=== PATIENT | male | born 1955 | race Caucasian/White ===

== ENCOUNTER 2019-06-24 06:00 | Day surgery (SDC) | payer MEDICARE, SELFPAY ==
[2019-06-22 10:16] VITALS: BMI 36.5
[2019-06-24 06:25] VITALS: BP 148/88; PULSE 52; RESP 20; TEMP 36.6; O2SAT 98
[2019-06-24] MEDS: sodium chloride 0.9% 1,000 ML 30 ML IV (06:28)
--- NOTE | 2019-06-24 06:38 | ANES.PREANE2 ---
Pre-Anesthetic Assessment Pre-Anesthetic Assessment: Height/Weight: Height 1.93 m Weight 136.078 kg Temp Pulse Resp BP Pulse Ox 97.9 F 52 L 20 H 148/88 98 06/24/19 06:25 06/24/19 06:25 06/24/19 06:25 06/24/19 06:25 06/24/19 06:25 Proposed Procedure: Operation Date: 06/24/19 07:00 Proposed Procedures p Colonoscopy(Not Applicable) - Brian Rodriguez MD Last intake: Intake Last Liquid Date 06/23/19 Last Liquid Time 19:00 Last Solid Date 06/22/19 Last Solid Time 18:00 Social: Social History: No alcohol and No tobacco Exam: Pre-Anes Outpt Exam: alert, oriented x 3, clear to auscultation bilaterally and regular rate & rhythm Airway: Submandibular: WNL Cervical ROM: WNL MP: 2 Dentition: Other (teeth ok) History/ROS: No significant history except as noted Pulmonary: Pulmonary: None reported CV/HEM: CV/HEM: HTN Comments: AVR : : None reported Hepatic: Hepatic: None reported GI: GI: GERD (occ) Metabolic: Metabolic: Morbid obesity Musc/skel: Musc/skel: Fibromyalgia, Lower Back Pain and OA/DJD Neuropsych: Neuropsych: Anxiety, Depression and Neuropathy (bilat feet) Anesthetic Plan: ASA status: 3 Anesthesia: Anesthesia Evaluation and MAC Risk of > 500 ml blood loss (7ml/kg in children): No Meds/Allergies Current Medications: Current Medications Generic Name Dose Route Start Last Admin Trade Name Freq PRN Reason Stop Dose Admin Sodium Chloride 1,000 mls @ 30 ml s/hr 06/24/19 06:15 06/24/19 06:28 Sodium Chloride 0.9% IV 06/25/19 06:14 30 mls/hr .Q24H PRANEETH Administration PFSH Anesthesia PFSH: Medical History Colitis Deviated nasal septum Diverticulosis Fibromyalgia History of gastric ulcer Hx of gastroesophageal reflux (GERD) Hx of hiatal hernia Sleep apnea Valvular heart disease Surgical History H/O aortic valve replacement with porcine valve H/O left inguinal hernia repair Hx of arthroscopy of shoulder Hx of colonoscopy Data Anesthesia Cardiac Studies: No Data to Display
--- NOTE | 2019-06-24 07:08 | W.PM.OPSUD ---
Surgery/Procedure H&P Update DATE OF PROCEDURE: June 24, 2019 DATE H&P PERFORMED: 06/14/19 H&P UPDATE INFORMATION: No changes to prior documentation PLANNED PROCEDURE: Operation Date: 06/24/19 07:00 Proposed Procedures p Colonoscopy(Not Applicable) - Brian Rodriguez MD
[2019-06-24 07:36] VITALS: BP 104/62; PULSE 47; RESP 16; TEMP 37.1; O2SAT 97
[2019-06-24 07:48] VITALS: BP 112/65; PULSE 47; RESP 18; O2SAT 97
== END 2019-06-24 08:00 | disposition home or self-care (01) ==
PROVIDERS: PCP Internal Medicine; Visit Provider Surgery
PROC: 0DJD8ZZ Inspection of Lower Intestinal Tract, Via Natural or Artificial Opening Endoscopic (ICD-10-PCS; CPT 45378; principal; 2019-06-24 07:00)
DX: Z12.11 Encounter for screening for malignant neoplasm of colon (principal); K57.30 Diverticulosis of large intestine without perforation or abscess without bleeding; K64.8 Other hemorrhoids; D12.0 Benign neoplasm of cecum; D12.3 Benign neoplasm of transverse colon; I10 Essential (primary) hypertension; K21.9 Gastro-esophageal reflux disease without esophagitis; E66.01 Morbid (severe) obesity due to excess calories; Z68.36 Body mass index [BMI] 36.0-36.9, adult; M79.7 Fibromyalgia; M19.90 Unspecified osteoarthritis, unspecified site; F41.9 Anxiety disorder, unspecified; F32.9 Major depressive disorder, single episode, unspecified
CPT/HCPCS: 12345; 45385; 88305; J2001; J2704; J7030

== ENCOUNTER → 2019-09-01 15:24 | Outpatient (BNVA) | payer MEDICARE, SELFPAY | PROVIDERS: PCP Internal Medicine; Referring Provider Nurse Practitioner; Visit Provider Podiatrist Foot & Ankle Surgery | DX: S92.109A Unspecified fracture of unspecified talus, initial encounter for closed fracture (principal); S92.009A Unspecified fracture of unspecified calcaneus, initial encounter for closed fracture; W19.XXXA Unspecified fall, initial encounter | CPT/HCPCS: 73590; 73610 ==

== ENCOUNTER 2019-09-23 15:24 | Outpatient (CLI) | payer MEDICARE, SELFPAY | END 2019-09-23 15:25 | disposition home or self-care (01) | LOC: SPT 15:24 | PROVIDERS: PCP Internal Medicine; Visit Provider Podiatrist Foot & Ankle Surgery | DX: Z46.89 Encounter for fitting and adjustment of other specified devices (principal); S92.109D Unspecified fracture of unspecified talus, subsequent encounter for fracture with routine healing; S95 Injury of blood vessels at ankle and foot level; X58.XXXD Exposure to other specified factors, subsequent encounter | CPT/HCPCS: 97760; L1902 ==

== ENCOUNTER 2020-01-15 16:00 | Observation (INO) | payer MEDICARE, SELFPAY ==
[2020-01-15] VITALS (15 sets, daily range): BP systolic 135–228; BP diastolic 74–146; PULSE 59–72; RESP 15–27; TEMP 36.4; O2SAT 92–99; BMI 38.9
--- NOTE | 2020-01-15 16:12 | XRR_ITS ---
PROCEDURE INFORMATION: Exam: XR Chest, 1 View Exam date and time: 01/15/2020 4:44 PM Age: 64 years old Clinical indication: Dyspnea; Additional info: Syncope TECHNIQUE: Imaging protocol: XR of the chest Views: 1 view. COMPARISON: CR Chest 2 views* [id number] 09/29/2017 8:38 PM FINDINGS: Lungs: Bilateral upper lobe predominant interstitial opacities are noted. No airspace consolidation is seen. Pleural space: Unremarkable. No pleural effusion. No pneumothorax. Heart/Mediastinum: The heart is normal in size. Postoperative changes of aortic valve repair are again noted. Bones/joints: Degenerative changes are seen in the thoracic spine. XR/XR chest 1V portable [id number] IMPRESSION: Bilateral upper lobe predominant interstitial opacities. Inhalational lung injury, pneumonitis or atypical/viral pulmonary infection are diagnostic considerations.
--- NOTE | 2020-01-15 16:53 | ED_ITS ---
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 Conversation last fall he began to get substernal chest pain does not radiate anywhere. He had some slight shortness of breath but no diaphoresis. He vomited x2. Did have sick nausea with it. He still having some moderate chest pain now. Patient did have a aortic valvuloplasty done about 5 years ago at that time he had a stress test and an angiogram and was told that the angiogram was completely normal except for the valve issue. He did not take anything for it before coming in today. He had not had any ep isodes similar to this prior. MD complaint: chest pain Onset (ago): hour(s) Timing of current episode: constant and still present Prior episodes: No Onset: during rest Pain location: substernal Pain radiation: none Severity: moderate Quality: tightness, aching and heaviness Relieving factors: nothing Exacerbating factors: nothing Associated symptoms: Reports dyspnea; Deny abdominal pain, diaphoresis, fever(s), leg edema, nausea, palpitations, sense of impending doom, syncope or vomiting Treatment prior to arrival: none Review of Systems Const: Denies: fever(s) or diaphoresis ENMT: Denies: throat pain, ear or mastoid pain, nasal discharge or nasal congestion Card: Denies: palpitations or syncope Resp: Reports: dyspnea GI: Denies: abdominal pain, nausea or vomiting : Denies: flank pain, dysuria, urinary frequency or urinary urgency Skin/Breast: Denies: rash or pruritus PFSH ED PFSH: Medical History Colitis Deviated nasal septum Diverticulosis Dyslipidemia Essential hypertension Fibromyalgia History of gastric ulcer Hx of gastroesophageal reflux (GERD) Hx of hiatal hernia Obesity Sleep apnea Valvular heart disease Surgical History H/O aortic valve replacement with porcine valve H/O left inguinal hernia repair Hx of arthroscopy of shoulder Hx of colonoscopy Physical Exam Const: COMMON NORMALS: no acute distress GENERAL APPEARANCE: cooperative and comfortable ORIENTATION/CONSCIOUSNESS: Yes awake, Yes oriented to person, Yes oriented to place and Yes oriented to time HENMT: COMMON NORMALS: normocephalic, atraumatic and hearing grossly normal bilaterally HEAD & SCALP: normocephalic and atraumatic Neck/C-Spine: COMMON NORMALS: no JVD Resp: COMMON NORMALS: normal respiratory effort, No retractions, No use of accessory muscles and clear to auscultation bilaterally AUSCULTATION: clear to auscultation bilaterally Cardio: COMMON NORMALS: no JVD, regular rate, regular rhythm and No murmurs present (Cardio) RATE: regular rate RHYTHM: regular rhythm GI: COMMON NORMALS: Soft to palpation and No hepatosplenomegaly present AUSCULTATION: Yes normoactive bowel sounds PALPATION: Yes Soft to palpation, No Tenderness to palpation present (GI), No Guarding due to palpation present (GI) and Yes No hepatosplenomegaly present Extremity: COMMON NORMALS: normal to inspection, capillary refill normal, no clubbing, cyanosis or edema, no calf tenderness and no pedal edema Neuro: SENSORIUM/ORIENTATION: Yes oriented to person, Yes oriented to place and Yes oriented to time Skin: COMMON NORMALS: no rashes or lesions noted GENERAL SKIN EXAM: no rashes or lesions noted Course Vital Signs: Vital signs: Vital Signs Temperature 98.0 F 01/16/20 04:00 Pulse Rate 64 01/16/20 04:50 Respiratory Rate 18 01/16/20 04:50 Blood Pressure 135/84 01/16/20 04:50 Pulse Oximetry 92 01/16/20 04:50 MDM - Chest Pain MDM Narrative: Medical decision making narrative: Patient having accelerated hypertension waiting on second troponin. Case signed out to Dr. Sarabia. Currently is on a nitro drip for blood pressure he has some subtle EKG changes but not fully diagnostic. Care turned over to Dr. Sarabia at change of shift see his notes for final diagnosis andl disposition Lab Data: Labs: Lab Results 01/15/20 01/15/20 01/15/20 Range/Units 16:40 16:40 16:40 WBC 11.0 H (4.0-10.0) 10^3/ uL RBC 5.70 H (4.1-5.3) 10^6/u L Hgb 16.8 H (11.7-16.6) g/dL Hct 49.7 (42.0-52.0) % MCV 87.2 (80-94) fL MCH 29.5 (28.0-34.0) pg MCHC 33.8 (30.0-36.0) g/dL RDW 12.8 (12.1-15.1) % Plt Count 253 (130-400) 10^3/c mm MPV 10.8 H (7.4-10.4) fL Neut % (Auto) 68.3 % Lymph % (Auto) 20.3 % Linn % (Auto) 7.2 % Eos % (Auto) 3.5 % Baso % (Auto) 0.4 % Neut # (Auto) 7.52 (1.8-7.7) 10^3/u L Lymph # (Auto) 2.2 (0.8-4.8) 10^3/u L Linn # (Auto) 0.8 (0.2-0.9) 10^3/u L Eos # (Auto) 0.4 (0.0-0.8) 10^3/u L Baso # (Auto) 0.0 (0.0-0.1) 10^3/u L Nucleated RBC % (a uto) 0 % Nucleated RBCs # 0.0 /100WBC PT 13.10 (12.1-14.9) SECO NDS INR 0.96 (0.8-1.2) APTT 30.8 (23.9-36.7) SECO NDS Sodium 139 (136-145) mmol/L Potassium 3.9 (3.5-5.1) mmol/L Chloride 103 (98-107) mmol/L Carbon Dioxide 25 (22-29) mmol/L Anion Gap 14.9 (5-19) BUN 22 (8-23) mg/dL Creatinine 1.1 (0.7-1.2) mg/dL GFR Calculation 67.0 L (90-130) mL/min Glucose 94 (65-115) mg/dL Calculated Osmolal ity 291 (285-295) mOsm/k g Calcium 10.3 (8.5-10.5) mg/dL Magnesium 1.9 (1.7-2.3) mg/dL Total Bilirubin 0.4 (0.15-1.2) mg/dL AST 23 (0-40) U/L ALT 16 (0-41) U/L Alkaline Phosphata se 88 (40-130) IU/L Troponin T Baselin e (0-15) ng/L Troponin T 120 Min kashia (0-15) ng/L Delta Troponin T (0-10) ABS# Troponin T Hi Sens 6Hr (0-15) ng/L Troponin T Hi Sens 6Hr Delta (0-12) ng/L NT-Pro-B Natriuret Pep 1031 H (0-125) pg/mL Total Protein 7.7 (6.6-8.7) g/dL Albumin 4.5 (3.5-5.2) g/dL Globulin 3.2 (1.3-4.6) g/dL SARS-CoV-2 Ag (Rap id) (Negative) 01/15/20 01/15/20 01/15/20 Range/Units 16:40 18:37 19:29 WBC (4.0-10.0) 10^3/ uL RBC (4.1-5.3) 10^6/u L Hgb (11.7-16.6) g/dL Hct (42.0-52.0) % MCV (80-94) fL MCH (28.0-34.0) pg MCHC (30.0-36.0) g/dL RDW (12.1-15.1) % Plt Count (130-400) 10^3/c mm MPV (7.4-10.4) fL Neut % (Auto) % Lymph % (Auto) % Linn % (Auto) % Eos % (Auto) % Baso % (Auto) % Neut # (Auto) (1.8-7.7) 10^3/u L Lymph # (Auto) (0.8-4.8) 10^3/u L Linn # (Auto) (0.2-0.9) 10^3/u L Eos # (Auto) (0.0-0.8) 10^3/u L Baso # (Auto) (0.0-0.1) 10^3/u L Nucleated RBC % (a uto) % Nucleated RBCs # /100WBC PT (12.1-14.9) SECO NDS INR (0.8-1.2) APTT (23.9-36.7) SECO NDS Sodium (136-145) mmol/L Potassium (3.5-5.1) mmol/L Chloride (98-107) mmol/L Carbon Dioxide (22-29) mmol/L Anion Gap (5-19) BUN (8-23) mg/dL Creatinine (0.7-1.2) mg/dL GFR Calculation (90-130) mL/min Glucose (65-115) mg/dL Calculated Osmolal ity (285-295) mOsm/k g Calcium (8.5-10.5) mg/dL Magnesium (1.7-2.3) mg/dL Total Bilirubin (0.15-1.2) mg/dL AST (0-40) U/L ALT (0-41) U/L Alkaline Phosphata se (40-130) IU/L Troponin T Baselin e 27 H (0-15) ng/L Troponin T 120 Min kashia 23.31 H (0-15) ng/L Delta Troponin T -3.69 L (0-10) ABS# Troponin T Hi Sens 6Hr 23.43 H (0-15) ng/L Troponin T Hi Sens 6Hr Delta -3.57 L (0-12) ng/L NT-Pro-B Natriuret Pep (0-125) pg/mL Total Protein (6.6-8.7) g/dL Albumin (3.5-5.2) g/dL Globulin (1.3-4.6) g/dL SARS-CoV-2 Ag (Rap id) (Negative) 01/15/20 Range/Units 19:30 WBC (4.0-10.0) 10^3/ uL RBC (4.1-5.3) 10^6/u L Hgb (11.7-16.6) g/dL Hct (42.0-52.0) % MCV (80-94) fL MCH (28.0-34.0) pg MCHC (30.0-36.0) g/dL RDW (12.1-15.1) % Plt Count (130-400) 10^3/c mm MPV (7.4-10.4) fL Neut % (Auto) % Lymph % (Auto) % Linn % (Auto) % Eos % (Auto) % Baso % (Auto) % Neut # (Auto) (1.8-7.7) 10^3/u L Lymph # (Auto) (0.8-4.8) 10^3/u L Linn # (Auto) (0.2-0.9) 10^3/u L Eos # (Auto) (0.0-0.8) 10^3/u L Baso # (Auto) (0.0-0.1) 10^3/u L Nucleated RBC % (a uto) % Nucleated RBCs # /100WBC PT (12.1-14.9) SECO NDS INR (0.8-1.2) APTT (23.9-36.7) SECO NDS Sodium (136-145) mmol/L Potassium (3.5-5.1) mmol/L Chloride (98-107) mmol/L Carbon Dioxide (22-29) mmol/L Anion Gap (5-19) BUN (8-23) mg/dL Creatinine (0.7-1.2) mg/dL GFR Calculation (90-130) mL/min Glucose (65-115) mg/dL Calculated Osmolal ity (285-295) mOsm/k g Calcium (8.5-10.5) mg/dL Magnesium (1.7-2.3) mg/dL Total Bilirubin (0.15-1.2) mg/dL AST (0-40) U/L ALT (0-41) U/L Alkaline Phosphata se (40-130) IU/L Troponin T Baselin e (0-15) ng/L Troponin T 120 Min kashia (0-15) ng/L Delta Troponin T (0-10) ABS# Troponin T Hi Sens 6Hr (0-15) ng/L Troponin T Hi Sens 6Hr Delta (0-12) ng/L NT-Pro-B Natriuret Pep (0-125) pg/mL Total Protein (6.6-8.7) g/dL Albumin (3.5-5.2) g/dL Globulin (1.3-4.6) g/dL SARS-CoV-2 Ag (Rap id) Negative (Negative) Discharge Plan Discharge Patient Disposition: Placed in Observation Admit Provider: Dennis Ag Clinical Impression: Hypertensive urgency Chest pain Qualifiers: Chest pain type: unspecified Qualified Code(s): R07.9 - Chest pain, unspecified Coding Level of Care Code ED Slurry Control Operator Helper for Chg Fwd Exam Comprehensive Documented by User: Dominik Sarabia DO 01/15/20 21:10 HPI - Chest Pain General: Chief Complaint: Chest Pain Stated Complaint: CP Time Seen by Provider: 01/15/20 16:38 PFSH ED PFSH: Medical History Colitis Deviated nasal septum Diverticulosis Dyslipidemia Essential hypertension Fibromyalgia History of gastric ulcer Hx of gastroesophageal reflux (GERD) Hx of hiatal hernia Obesity Sleep apnea Valvular heart disease Surgical History H/O aortic valve replacement with porcine valve H/O left inguinal hernia repair Hx of arthroscopy of shoulder Hx of colonoscopy Course Vital Signs: Vital signs: Vital Signs Temperature 98.0 F 01/16/20 04:00 Pulse Rate 64 01/16/20 04:50 Respiratory Rate 18 01/16/20 04:50 Blood Pressure 135/84 01/16/20 04:50 Pulse Oximetry 92 01/16/20 04:50 MDM - Chest Pain MDM Narrative: Medical decision making narrative: 64-year-old gentleman checked out to me at shift change by Dr. Beltran. This gentleman presented with chest pain and hypertension. His blood pressure was quite high. It remained high despite giving hydralazine, Nitropaste, and amlodipine. He was still having chest pain. Pain improved after 100 mcg of fentanyl, but he was still quite hypertensive. He was placed on a nitroglycerin drip at 10. Current blood pressure 165/84. His chest pain is gone. His EKG showed a sinus rhythm with a left bundle branch block. Repeated 2 hours showed no change. Troponin was 23 initially, and did not change at 2 hours. He remains on a nitroglycerin drip. He will be observed for blood pressure control and symptom control. Chest x-ray showed bilateral upper lobe infiltrates, but CTA of the chest confirmed that it was clear, no PE, no aortic dissection Lab Data: Labs: Lab Results 01/15/20 01/15/20 01/15/20 Range/Units 16:40 16:40 16:40 WBC 11.0 H (4.0-10.0) 10^3/ uL RBC 5.70 H (4.1-5.3) 10^6/u L Hgb 16.8 H (11.7-16.6) g/dL Hct 49.7 (42.0-52.0) % MCV 87.2 (80-94) fL MCH 29.5 (28.0-34.0) pg MCHC 33.8 (30.0-36.0) g/dL RDW 12.8 (12.1-15.1) % Plt Count 253 (130-400) 10^3/c mm MPV 10.8 H (7.4-10.4) fL Neut % (Auto) 68.3 % Lymph % (Auto) 20.3 % Linn % (Auto) 7.2 % Eos % (Auto) 3.5 % Baso % (Auto) 0.4 % Neut # (Auto) 7.52 (1.8-7.7) 10^3/u L Lymph # (Auto) 2.2 (0.8-4.8) 10^3/u L Linn # (Auto) 0.8 (0.2-0.9) 10^3/u L Eos # (Auto) 0.4 (0.0-0.8) 10^3/u L Baso # (Auto) 0.0 (0.0-0.1) 10^3/u L Nucleated RBC % (a uto) 0 % Nucleated RBCs # 0.0 /100WBC PT 13.10 (12.1-14.9) SECO NDS INR 0.96 (0.8-1.2) APTT 30.8 (23.9-36.7) SECO NDS Sodium 139 (136-145) mmol/L Potassium 3.9 (3.5-5.1) mmol/L Chloride 103 (98-107) mmol/L Carbon Dioxide 25 (22-29) mmol/L Anion Gap 14.9 (5-19) BUN 22 (8-23) mg/dL Creatinine 1.1 (0.7-1.2) mg/dL GFR Calculation 67.0 L (90-130) mL/min Glucose 94 (65-115) mg/dL Calculated Osmolal ity 291 (285-295) mOsm/k g Calcium 10.3 (8.5-10.5) mg/dL Magnesium 1.9 (1.7-2.3) mg/dL Total Bilirubin 0.4 (0.15-1.2) mg/dL AST 23 (0-40) U/L ALT 16 (0-41) U/L Alkaline Phosphata se 88 (40-130) IU/L Troponin T Baselin e (0-15) ng/L Troponin T 120 Min kashia (0-15) ng/L Delta Troponin T (0-10) ABS# Troponin T Hi Sens 6Hr (0-15) ng/L Troponin T Hi Sens 6Hr Delta (0-12) ng/L NT-Pro-B Natriuret Pep 1031 H (0-125) pg/mL Total Protein 7.7 (6.6-8.7) g/dL Albumin 4.5 (3.5-5.2) g/dL Globulin 3.2 (1.3-4.6) g/dL SARS-CoV-2 Ag (Rap id) (Negative) 01/15/20 01/15/20 01/15/20 Range/Units 16:40 18:37 19:29 WBC (4.0-10.0) 10^3/ uL RBC (4.1-5.3) 10^6/u L Hgb (11.7-16.6) g/dL Hct (42.0-52.0) % MCV (80-94) fL MCH (28.0-34.0) pg MCHC (30.0-36.0) g/dL RDW (12.1-15.1) % Plt Count (130-400) 10^3/c mm MPV (7.4-10.4) fL Neut % (Auto) % Lymph % (Auto) % Linn % (Auto) % Eos % (Auto) % Baso % (Auto) % Neut # (Auto) (1.8-7.7) 10^3/u L Lymph # (Auto) (0.8-4.8) 10^3/u L Linn # (Auto) (0.2-0.9) 10^3/u L Eos # (Auto) (0.0-0.8) 10^3/u L Baso # (Auto) (0.0-0.1) 10^3/u L Nucleated RBC % (a uto) % Nucleated RBCs # /100WBC PT (12.1-14.9) SECO NDS INR (0.8-1.2) APTT (23.9-36.7) SECO NDS Sodium (136-145) mmol/L Potassium (3.5-5.1) mmol/L Chloride (98-107) mmol/L Carbon Dioxide (22-29) mmol/L Anion Gap (5-19) BUN (8-23) mg/dL Creatinine (0.7-1.2) mg/dL GFR Calculation (90-130) mL/min Glucose (65-115) mg/dL Calculated Osmolal ity (285-295) mOsm/k g Calcium (8.5-10.5) mg/dL Magnesium (1.7-2.3) mg/dL Total Bilirubin (0.15-1.2) mg/dL AST (0-40) U/L ALT (0-41) U/L Alkaline Phosphata se (40-130) IU/L Troponin T Baselin e 27 H (0-15) ng/L Troponin T 120 Min kashia 23.31 H (0-15) ng/L Delta Troponin T -3.69 L (0-10) ABS# Troponin T Hi Sens 6Hr 23.43 H (0-15) ng/L Troponin T Hi Sens 6Hr Delta -3.57 L (0-12) ng/L NT-Pro-B Natriuret Pep (0-125) pg/mL Total Protein (6.6-8.7) g/dL Albumin (3.5-5.2) g/dL Globulin (1.3-4.6) g/dL SARS-CoV-2 Ag (Rap id) (Negative) 01/15/20 Range/Units 19:30 WBC (4.0-10.0) 10^3/ uL RBC (4.1-5.3) 10^6/u L Hgb (11.7-16.6) g/dL Hct (42.0-52.0) % MCV (80-94) fL MCH (28.0-34.0) pg MCHC (30.0-36.0) g/dL RDW (12.1-15.1) % Plt Count (130-400) 10^3/c mm MPV (7.4-10.4) fL Neut % (Auto) % Lymph % (Auto) % Linn % (Auto) % Eos % (Auto) % Baso % (Auto) % Neut # (Auto) (1.8-7.7) 10^3/u L Lymph # (Auto) (0.8-4.8) 10^3/u L Linn # (Auto) (0.2-0.9) 10^3/u L Eos # (Auto) (0.0-0.8) 10^3/u L Baso # (Auto) (0.0-0.1) 10^3/u L Nucleated RBC % (a uto) % Nucleated RBCs # /100WBC PT (12.1-14.9) SECO NDS INR (0.8-1.2) APTT (23.9-36.7) SECO NDS Sodium (136-145) mmol/L Potassium (3.5-5.1) mmol/L Chloride (98-107) mmol/L Carbon Dioxide (22-29) mmol/L Anion Gap (5-19) BUN (8-23) mg/dL Creatinine (0.7-1.2) mg/dL GFR Calculation (90-130) mL/min Glucose (65-115) mg/dL Calculated Osmolal ity (285-295) mOsm/k g Calcium (8.5-10.5) mg/dL Magnesium (1.7-2.3) mg/dL Total Bilirubin (0.15-1.2) mg/dL AST (0-40) U/L ALT (0-41) U/L Alkaline Phosphata se (40-130) IU/L Troponin T Baselin e (0-15) ng/L Troponin T 120 Min kashia (0-15) ng/L Delta Troponin T (0-10) ABS# Troponin T Hi Sens 6Hr (0-15) ng/L Troponin T Hi Sens 6Hr Delta (0-12) ng/L NT-Pro-B Natriuret Pep (0-125) pg/mL Total Protein (6.6-8.7) g/dL Albumin (3.5-5.2) g/dL Globulin (1.3-4.6) g/dL SARS-CoV-2 Ag (Rap id) Negative (Negative) Discharge Plan Discharge Patient Disposition: Placed in Observation Admit Provider: Dennis Ag Clinical Impression: Hypertensive urgency Chest pain Qualifiers: Chest pain type: unspecified Qualified Code(s): R07.9 - Chest pain, unspecified Coding Level of Care Code ED Slurry Control Operator Helper for g Fwd Exam Comprehensive
[2020-01-15 16:56] LABS: Basophils % 0.4 %; Eosinophils # 0.4 10^3/uL (0.0-0.8); Eosinophils % 3.5 %; Hematocrit 49.7 % (42.0-52.0); Hemoglobin 16.8 g/dL (11.7-16.6); Lymphocytes # 2.2 10^3/uL (0.8-4.8); Lymphocytes % 20.3 %; Mean Corpuscular HGB Conc 33.8 g/dL (30.0-36.0); Mean Corpuscular Hemoglobin 29.5 pg (28.0-34.0); Mean Corpuscular Volume 87.2 fL (80-94); Mean Platelet Volume 10.8 fL (7.4-10.4); Monocytes # 0.8 10^3/uL (0.2-0.9); Monocytes % 7.2 %; Neutrophils # 7.52 10^3/uL (1.8-7.7); Neutrophils % 68.3 %; Nucleated Red Blood Cells % 0 %; Platelet Count 253 10^3/cmm (130-400); Red Cell Distribution Width 12.8 % (12.1-15.1)
[2020-01-15 17:09] LABS: INR 0.96 (0.8-1.2)
[2020-01-15 17:10] LABS: Partial Thromboplastin Time 30.8 SECONDS (23.9-36.7)
[2020-01-15 17:17] LABS: Troponin(5th) Baseline 27 ng/L (0-15)
[2020-01-15 17:36] LABS: Alanine Aminotransferase 16 U/L (0-41); Albumin Level 4.5 g/dL (3.5-5.2); Alkaline Phosphatase 88 IU/L (40-130); Anion Gap 14.9 (5-19); Aspartate Amino Transferase 23 U/L (0-40); Blood Urea Nitrogen 22 mg/dL (8-23); Calcium 10.3 mg/dL (8.5-10.5); Carbon Dioxide 25 mmol/L (22-29); Chloride 103 mmol/L (98-107); Globulin 3.2 g/dL (1.3-4.6); Glucose 94 mg/dL (65-115); Magnesium 1.9 mg/dL (1.7-2.3); NT Pro B Type Natriuretic Pept 1031 pg/mL (0-125); Osmolality Calculated 291 mOsm/kg (285-295); Potassium 3.9 mmol/L (3.5-5.1); Sodium 139 mmol/L (136-145); Total Bilirubin 0.4 mg/dL (0.15-1.2); Total Protein 7.7 g/dL (6.6-8.7)
[2020-01-15] MEDS: hyDRALAzine 20 mg/mL INJ 1 mL 10 MG IVP (17:55)
[2020-01-15] MEDS: amlodipine 10 mg Tablet PO (17:56)
[2020-01-15] MEDS: nitroglycerin 1 gm/inch oint Pkt 1 INCH TOPICAL (17:57)
--- NOTE | 2020-01-15 18:13 | ECG_ITS ---
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1955 Requested By: Lillian Hagan Order Number: [id number] Taj MD: JOHNATHAN GE Measurements Intervals [place] Rate: 58 P: 22 VT: 207 QRS: -24 QRSD: 141 T: 15 QT: 441 QTc: 434 Interpretive Statements SINUS BRADYCARDIA POSSIBLE LEFT ATRIAL ENLARGEMENT [-0.1mV P WAVE IN V1/V2] LEFT BUNDLE BRANCH BLOCK [120+ ms QRS DURATION, 80+ ms Q/S IN V1/V2, 85+ ms R IN I/aVL/V5/V6] No previous ECG available for comparison Electronically Signed On 01-16-2020 15:48:59 INTERMEDIATE FRAME TENDER by JOHNATHAN GE [id number]
[2020-01-15] MEDS: ondansetron 2 mg/ML SDV 2 mL 4 MG IVP ×2 (18:17→21:42)
[2020-01-15] MEDS: fentaNYL 50 mcg/mL INJ 2mL 100 MCG IVP (18:18)
--- NOTE | 2020-01-15 18:29 | CTR_ITS ---
PROCEDURE INFORMATION: Exam: CT Angiography Chest With Contrast Exam date and time: 01/15/2020 6:47 PM Age: 64 years old Clinical indication: Chest pain; Other: Sub sternal; Prior surgery; Surgery date: 6+ months; Surgery type: Valve; Patient HX: C/O substernal cp; Additional info: Abnormal cxr TECHNIQUE: Imaging protocol: Computed tomographic angiography of the chest with intravenous contrast. 3D rendering (Not supervised by radiologist): MIP and/or 3D reconstructed images were created by the technologist. Radiation optimization: All CT scans at this facility use at least one of these dose optimization techniques: automated exposure control; mA and/or kV adjustment per patient size (includes targeted exams where dose is matched to clinical indication); or iterative reconstruction. Contrast material: OMNI 350; Contrast volume: 85 ml; Contrast route: INTRAVENOUS (IV); COMPARISON: CR (CHEST, ) 01/15/2020 4:54 PM RADIATION DOSE METRICS: Total DLP (mGy-cm): 530.84 FINDINGS: Pulmonary arteries: No pulmonary embolus. Aorta: Unremarkable. No aortic aneurysm. No aortic dissection. Lungs: The lungs are clear. No interstitial or airspace process is visualized. Pleural space: Unremarkable. No pneumothorax. No pleural effusion. Heart: The heart is normal in size. Aortic valve replacement is noted. Left coronary artery calcifications are appreciated. Mediastinal space: A small hiatal hernia is noted. Lymph nodes: Unremarkable. No enlarged lymph nodes. Gallbladder and bile ducts: Several gallstones are present in the gallbladder. No biliary ductal dilatation is visualized. Stomach and bowel: Diverticulosis coli is seen, without evidence of diverticulitis. Bones/joints: Unremarkable. No acute fracture. Soft tissues: Unremarkable. CT/CT angio chest PE protcl [id number] IMPRESSION: 1. No pulmonary embolus or acute pulmonary pathology. 2. Small hiatal hernia. 3. Coronary artery disease. 4. Diverticulosis coli. Radiation Dose CTDIVOL = (mGy): DLP = 530.84 (mGy-cm)
--- NOTE | 2020-01-15 18:39 | PC.NURSE ---
2hr troponin drawn and 2hr EKG done.
[2020-01-15] MEDS: iohexol 350 mg/mL 100 mL Btl IV (19:15)
[2020-01-15 19:20] LABS: Troponin 5 6HR 23.43 ng/L (0-15)
[2020-01-15] MEDS: nitroglycerin drip 50 MG/250 ML PREMIX IV (19:20)
[2020-01-15 19:48] LABS: Troponin 5 6HR Delta -3.57 ng/L (0-12)
[2020-01-15 20:09] LABS: Troponin 5 2HR 23.31 ng/L (0-15)
[2020-01-15 20:12] LABS: Troponin 5 2HR Delta -3.69 ABS# (0-10)
[2020-01-15 20:21] LABS: SARS Covid-2 Antigen Negative (Negative)
[2020-01-15] MEDS: morphine 4 mg/mL SDV 1 mL IVP (21:42)
--- NOTE | 2020-01-15 23:36 | P.HP_ITS ---
Providers/Chief Complaint Admitting Physician: Dennis Ag MD Primary Care Provider: Jordan Medina DO Chief Complaint: CP History of Present Illness Prakash Musa is a 64 year old male with past medical history of hypertension, status post bioprosthetic aortic valve replacement 5 years ago (coronary angiogram done at that time was did not show any obstructive coronary artery disease, as well as a normal stress test) came in with chief complaint of acute onset of substernal chest pain and shortness of breath around noon, chest pain was pressure-like to sharp, with no radiation, was accompanied with nausea , vomiting and diaphoresis. 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 Upon arrival in the ER his blood pressure was extremely high he has recorded b lood pressure was 215/146.He was worked up for hypertensive urgency/emergency. When I was examining the patient his chest pain has subsided he was not complaining of any shortness, no chest pain on inspiration, no focal weakness, no nausea, was having some headache likely due to the nitro drip, no dizziness, no blurred vision, no abdominal pain, no urinary complaint, he denied any fever, cough, runny nose, abdominal pain , back pain sick contact. Imaging studies: CT angio chest: No pulmonary embolus or acute pulmonary pathology.No pneumothorax. No pleural effusion. Heart: The heart is normal in size. Aortic valve replacement is noted. Left coronary artery calcifications are appreciated. Xray chest : Bilateral upper lobe predominant interstitial opacities are noted. No airspace consolidation is seen. EKG :Sinus Bradycardia . LEFT BUNDLE BRANCH BLOCK. Pertinent lab : Troponin: Baseline: 27, 2-hour troponin: 23, delta 2h : -3.69, 6-hour troponin: 23, delta 6-hour: -3.57 proBNP: 1031 WBC: 11,000, H&H: 16.8/49 Rapid Covid: Negative ECA medications: Amlodipine 10 mg oral one-time dose, hydralazine IV 10 mg one- time dose, nitroglycerin paste 1 inch , fentanyl 100 mcg i.v , morphine sulfate 4 mg IV x1. Patient was placed on nitro drip. Review of Systems Const: Denies: fever(s), chills, body aches or change in appetite Card: Denies: swelling of feet/ankles, orthopnea or leg pain with exertion Resp: Denies: productive cough, wheezing or pain on inspiration GI: Denies: abdominal pain, diarrhea or constipation : Denies: flank pain or difficulty urinating Musc: Denies: back pain, extremity pain or extremity swelling Neuro: Denies: difficulty walking or confusion Medications/Allergies Home Medications Medication Instructions Recorded Confirmed Last Taken Type Aspir-81 81 mg PO DAILY@209906/22/19 01/15/20 01/14/20 History losartan 100 mg PO DAILY@209906/22/19 01/15/20 01/14/20 History metoprolol tartrate 50 mg PO BID@729,209906/22/19 01/15/20 01/15/20 History oxycodone 10 mg PO DIRECTED PRN 06/22/19 01/15/20 Unknown History magnesium oxide 400 mg PO DAILY@72908/25/19 01/15/20 01/15/20 History CAM WALKER #1 each 09/01/19 01/15/20 Unknown Rx ASO #1 each 09/23/19 01/15/20 Unknown Rx Total Cleanse Uric Acid 1 tab PO DAILY@72901/15/20 01/15/20 01/15/20 History vit C-s.yymoor-ffkewp-bxrwp sd 1 cap PO DAILY@72901/15/20 01/15/20 01/15/20 History [Tart Sandhu] Allergies Allergy/AdvReac Type Severity Reaction Status Date / Time Sulfa (Sulfonamide Allergy Unknown Verified 10/14/19 15:13 Antibiotics) PFSH Acute PFSH: Medical History (Updated 01/15/20 @ 21:02 by Dominik Sarabia DO) Colitis Deviated nasal septum Diverticulosis Dyslipidemia Essential hypertension Fibromyalgia History of gastric ulcer Hx of gastroesophageal reflux (GERD) Hx of hiatal hernia Obesity Sleep apnea Valvular heart disease Surgical History H/O aortic valve replacement with porcine valve H/O left inguinal hernia repair Hx of arthroscopy of shoulder Hx of colonoscopy Vitals/I&O/Wt Last Vital Signs Temp 97.6 F 01/15/20 22:00 Pulse 70 01/15/20 22:00 Resp 22 H 01/15/20 22:00 BP 172/101 01/15/20 22:00 Pulse Ox 94 01/15/20 22:00 Weight last 48 hrs Weight 145.15 kg Physical Exam Const: COMMON NORMALS: patient oriented x3 HENMT: COMMON NORMALS: normocephalic and atraumatic HEAD & SCALP: normocephalic and atraumatic Eye: COMMON NORMALS: no scleral icterus GENERAL EYE: appearance normal, both eyes and all related structures Chest: COMMONS NORMALS: normal inspection of the chest CHEST: Yes Symmetrical chest wall rise Resp: COMMON NORMALS: normal respiratory effort, No retractions, No use of accessory muscles and clear to auscultation bilaterally EFFORT & INSPECTION: Yes symmetric chest movement AUSCULTATION: clear to auscultation bilaterally Cardio: COMMON NORMALS: regular rate, regular rhythm, S1 normal heart sound present, S2 normal heart sound present, No gallops present (Cardio), No murmurs present (Cardio), No rub (Cardio) and Peripheral pulses 2+ throughout RATE: regular rate RHYTHM: regular rhythm HEART SOUNDS: S1 normal heart sound present and S2 normal heart sound present PERIPHERAL PULSES: Peripheral pulses 2+ throughout OTHER: Ejection systolic murmur present in right second intercostal space. GI: COMMON NORMALS: Normal to inspection, nondistended, normoactive bowel sounds present, Soft to palpation, non-tender, No hepatosplenomegaly present and no masses AUSCULTATION: Yes normoactive bowel sounds PALPATION: Yes Soft to palpation and Yes No hepatosplenomegaly present RECTAL EXAM: Yes deferred Extremity: COMMON NORMALS: no clubbing, cyanosis or edema and no pedal edema Neuro: COMMON NORMALS: patient oriented x3 Data : 01/15/20 16:40 01/15/20 16:40 A&P Assessment and plan (1) Hypertensive urgency: Patient came in with uncontrolled hypertension with extremely elevated blood pressure.No signs of endorgan damage. Continue nitro drip. Started on home meds losartan 100 mg p.o. daily as well as metoprolol tartrate 50 mg p.o. daily. Hydralazine 25 mg p.o. every 8 hours daily Status: Acute (2) Chest pain: Likely stress related with some component of extremely elevated blood pressure. Troponins are flat, no acute EKG change. We will order 2D echo. Possible stress test as an outpatient, given history of hypertension, dyslipidemia, obesity. Though he denies any smoking, as well as drug use. Status: Acute Qualifiers: Chest pain type: unspecified Qualified Code(s): R07.9 - Chest pain, unspecified (3) Essential hypertension: Continue home medications. Status: Acute (4) Dyslipidemia: Follow-up with lipid panel. Status: Acute (5) Sleep apnea: Status: Acute (6) H/O aortic valve replacement with porcine valve: Repeat 2D echo Status: Acute (7) Obesity: Will encourage diet and exercise Status: Acute (8) Valvular heart disease: Status: Acute Additional A&P Information DVT prophylaxis: Lovenox 40 subcu daily CODE STATUS: Full code Disposition: Home Attestations Medical Necessity Statement*: Patient is to be in hospital for management of hypertensive urgency. Coding Level of Care Code Acute Chemical Plant Operator for Venkata Adan Diagnoses Hypertensive urgency I16.0 Chest pain R07.9 Chest pain type: unspecified Essential hypertension I10 Dyslipidemia E78.5 Sleep apnea G47.30 H/O aortic valve replacement with porcine valve Z95.3 Obesity E66.9 Valvular heart disease I38
[2020-01-16] VITALS (58 sets, daily range): BP systolic 124–153; BP diastolic 68–99; PULSE 56–90; RESP 11–22; TEMP 36.7–37.3; O2SAT 92–97
[2020-01-16] MEDS: enoxaparin 40 mg/0.4 mL Syringe SUBCUT (00:08)
[2020-01-16] MEDS: nitroglycerin drip 50 MG/250 ML PREMIX IV (00:15)
--- NOTE | 2020-01-16 00:18 | PC.NURSE ---
Dr Ag called floor to request hold of first dose of hydralazine. Will begin with 0900 dose 01/16/20
--- NOTE | 2020-01-16 00:55 | PC.NURSE ---
Patient current BP 124/68. Informed Dr Ag and received instructed to stop nitro drip for now.
[2020-01-16 04:50] LABS: Basophils % 0.4 %; Eosinophils # 0.1 10^3/uL (0.0-0.8); Eosinophils % 1.3 %; Hematocrit 45.2 % (42.0-52.0); Hemoglobin 15.3 g/dL (11.7-16.6); Lymphocytes % 19.6 %; Mean Corpuscular HGB Conc 33.8 g/dL (30.0-36.0); Mean Corpuscular Hemoglobin 29.7 pg (28.0-34.0); Mean Corpuscular Volume 87.8 fL (80-94); Mean Platelet Volume 10.8 fL (7.4-10.4); Monocytes # 0.8 10^3/uL (0.2-0.9); Monocytes % 8.1 %; Neutrophils # 7.15 10^3/uL (1.8-7.7); Neutrophils % 70.3 %; Nucleated Red Blood Cells % 0 %; Platelet Count 204 10^3/cmm (130-400); Red Blood Count 5.15 10^6/uL (4.1-5.3); Red Cell Distribution Width 12.8 % (12.1-15.1); White Blood Count 10.2 10^3/uL (4.0-10.0)
[2020-01-16 05:17] LABS: Alanine Aminotransferase 29 U/L (0-41); Albumin Level 3.9 g/dL (3.5-5.2); Alkaline Phosphatase 77 IU/L (40-130); Anion Gap 12.8 (5-19); Aspartate Amino Transferase 40 U/L (0-40); Blood Urea Nitrogen 18 mg/dL (8-23); Calcium 9.4 mg/dL (8.5-10.5); Carbon Dioxide 27 mmol/L (22-29); Chloride 102 mmol/L (98-107); Globulin 2.9 g/dL (1.3-4.6); Glucose 95 mg/dL (65-115); Osmolality Calculated 288 mOsm/kg (285-295); Potassium 3.8 mmol/L (3.5-5.1); Sodium 138 mmol/L (136-145); Total Bilirubin 0.7 mg/dL (0.15-1.2); Total Protein 6.8 g/dL (6.6-8.7)
[2020-01-16 05:28] LABS: Chol HDL Ratio 3.93 mg/dL (1.0-5.00); Cholesterol 181 mg/dL (0-200); HDL Cholesterol 46 mg/dL (60-100); LDL Cholesterol Calculated 111 mg/dL (50-129); LDL HDL Ratio 2.41 RATIO (0.00-3.22); NT Pro B Type Natriuretic Pept 1465 pg/mL (0-125); Triglycerides 121 mg/dL (0-150)
[2020-01-16 05:30] LABS: Magnesium 1.8 mg/dL (1.7-2.3); Thyroid Stimulating Hormone 2.14 uIU/mL (0.27-4.20)
[2020-01-16 05:38] LABS: Partial Thromboplastin Time 34.1 SECONDS (23.9-36.7)
[2020-01-16 08:03] LABS: Estmated Average Glucose 100; Hemoglobin A1C 5.1 % (4.0-6.0)
[2020-01-16] MEDS: metoprolol tartrate 50 mg Tablet PO (08:04)
[2020-01-16] MEDS: hyDRALAzine 25 mg Tablet PO ×2 (08:04→15:49)
[2020-01-16 09:27] LABS: Troponin T (5th) Once 26 ng/L (0-15)
--- NOTE | 2020-01-16 11:32 | PC.CHAP ---
Pastoral Care Encounter/Spiritual Assessment Type of Contact [] Declined tire buster visit [] Patient/Family/Request visit [] Outpatient visit [] Follow-up visit [] Physician referral [] Code/Alert [X] Routine visit [] Staff referral [] Actively dying [] Patient sleeping [] Family support [] [] Out of room [] Palliative care [] [] Receiving care in room [] Pre-surgical visit [] Trauma [] Long length of stay [] ICU visit [] Other: Relational/Emotional Strength [X] Patient feels connected with others/family/visitors/staff [] Distress [] Loneliness/isolation [] Abandonment Spirituality of Patient [] Person of [place] [] Attends Mormon of their [place] [] Believes in Prayer [] Reads Bible or Christian materials [] There are Spiritual issues to be addressed Can Maker Interventions [] Prayer [X] Active listening [X] Non-anxious presence [] Spiritual/emotional support [] Crisis/trauma care [] Spiritual counseling [] Bereavement support [] Provided bereavement packet [] Provided Bible/devotional materials [] Provided toy/stuffed animal, coloring book to patient or family member [] Provided Communion [] Anointing/[place] [] Salvation [] Completed spiritual assessment [] Other: Impact on Illness or Injury [] Angry [] Fearful [] Anxious [] Often cries [] Exhaustion [] Unable to work [] Unable to attend protestant [] Unable to walk/stand [] Unable to read [] Unable to drive [] Unable to eat/drink [] Unable to sleep [] Unable to be with family [] Patient intubated [] Other: Summary: Pt preparing for discharge. He appreciated the visit but did not want/need any tire buster interventions. Time spent with patient: 2 -3 minutes
--- NOTE | 2020-01-16 11:33 | ECG_ITS ---
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: : 1955 Requested By: Sekou Amaya Order Number: [id number] Taj MD: JOHNATHAN GE Measurements Intervals [place] Rate: 59 P: 19 ND: 211 QRS: -23 QRSD: 139 T: -11 QT: 468 QTc: 466 Interpretive Statements SINUS BRADYCARDIA WITH FIRST DEGREE AV BLOCK LEFT BUNDLE BRANCH BLOCK [120+ ms QRS DURATION, 80+ ms Q/S IN V1/V2, 85+ ms R IN I/aVL/V5/V6] Compared to ECG 01/15/2020 18:39:51 First degree AV block now present Electronically Signed On 01-16-2020 15:47:48 PROFESSIONAL PROGRAMMER ANALYST by JOHNATHAN GE [id number]
[2020-01-16] MEDS: ondansetron 2 mg/ML SDV 2 mL 4 MG IVP (12:16)
--- NOTE | 2020-01-16 18:18 | PC.NURSE ---
patient discharged home self care at this time patient provided with discharge instructions as well as follow up appointment and educated on new medications patient verbalized understanding of all instructions given patient assisted to Private vehicle by staff via wheel chair. patient alert oriented and in stable conditions
--- NOTE | 2020-01-16 22:49 | USCV_ITS ---
Prakash Musa Age: 64 Gender: M : 1955 Exam Date: 01/16/2020 08:38 Ordering Phys: Dennis Ag MD Technologist: Ludmila Saucedo [place] [facility] [place]: Chest pain BP: 144 / 80 HR: 62 Rhythm: Sinus Technical Quality: Technically difficult study MEASUREMENTS (Male / Female) Normal Values 2D ECHO LV Diastolic Diameter PLAX 3.7 cm 4.2 - 5.9 / 3.9 - 5.3 cm LV Systolic Diameter PLAX 2.7 cm LV Chamber Size 4.6 cm IVS Diastolic Thickness 2.8 cm 0.6 - 1.0 / 0.6 - 0.9 cm IVS Systolic Thickness 2.5 cm LVPW Diastolic Thickness 1.7 cm 0.6 - 1.0 / 0.6 - 0.9 cm LVPW Systolic Thickness 2.4 cm RV Chamber Size 4.5 cm LVOT Diameter 2.1 cm LV Ejection Fraction 2D Teich 54.2 % LA Diameter 4.8 cm LA Width 3.2 cm LA Height 7.2 cm RA Width 4.0 cm RA Height 5.5 cm Aorta at Sinotubular Diameter 3.4 cm M-MODE LV Diastolic Diameter MM 7.7 cm 4.2 - 5.9 / 3.9 - 5.3 cm LV Systolic Diameter MM 4.7 cm LV Ejection Fraction MM Teich 67.3 % IVS Diastolic Thickness MM 1.3 cm 0.6 - 1.0 / 0.6 - 0.9 cm IVS Systolic Thickness MM 2.1 cm LVPW Diastolic Thickness MM 2.1 cm 0.6 - 1.0 / 0.6 - 0.9 cm LVPW Systolic Thickness MM 2.7 cm Aortic Annulus Diameter 4.1 cm LA Ao Ratio MM 1.4 MV E Point Septal Separation 0.3 cm DOPPLER AV Peak Velocity 319.6 cm/s LVOT Peak Velocity 108.0 cm/s AV Area Cont Eq vti 1.2 cm squared AV Area Cont Eq pk 1.1 cm squared MV Area PHT 3.0 cm squared Mitral E to A Ratio 1.0 MV E' Velocity 50.0 cm/s Mitral E to MV E' Ratio 12.5 Mitral E to LV E' Lateral Ratio 10.2 Mitral E to LV E' Septal Ratio 16.0 TV Peak E Velocity 73.0 cm/s PV Peak Velocity 80.0 cm/s RV Acceleration Time 0.1 s RV Ejection Time 0.3 s RV AcT/ET 0.4 FINDINGS Left Ventricle Normal left ventricular cavity size. Normal left ventricular systolic function. No regional wall motion abnormalities. Left ventricular ejection fraction is estimated at 60 %. Grade I/IV diastolic dysfunction (abnormal relaxation filling pattern), normal to mildly elevated filling pressures. Right Ventricle The right ventricle is normal in size and function. RVSP could not be calculated due to incomplete tricuspid regurgitation velocity profile. Right Atrium The right atrium is normal in size. Left Atrium The left atrium is normal in size. Mitral Valve Structurally normal mitral valve without significant stenosis or prolapse. There is no mitral regurgitation. Aortic Valve Moderate aortic valve calcification. No aortic valve stenosis. Trace aortic valve regurgitation. Tricuspid Valve Structurally normal tricuspid valve without significant stenosis or regurgitation. Pulmonic Valve Structurally normal pulmonic valve without significant stenosis. There is no pulmonic regurgitation. Pericardium Normal pericardium without effusion. Aorta Normal ascending aorta dimension. CONCLUSIONS 1-Normal left ventricular cavity size. Normal left ventricular systolic function. No regional wall motion abnormalities. Left ventricular ejection fraction is estimated at 60 %. Grade I/IV diastolic dysfunction (abnormal relaxation filling pattern), normal to mildly elevated filling pressures. 2-Moderate aortic valve calcification. No aortic valve stenosis. Trace aortic valve regurgitation. 3-There is no pericardial effusion. 4-There is no pericardial effusion. 5-There are no prior echocardiogram studies to compare. Jeanne Arnold MD (Electronically Signed) Final Date: 16 January 2020 14:43 S
--- NOTE | 2020-01-18 12:27 | P.DS_ITS ---
Discharge Providers Date of Admission: 01/15/20 21:07 Date of Discharge: January 18, 2020 Attending Provider at Admission: Dennis Ag MD Attending Provider at Discharge: Sekou Amaya MD Primary Care Provider: Jordan Medina DO Diagnoses at Discharge Discharge Diagnosis (1) Hypertensive urgency: Status: Resolved (2) Chest pain: Status: Resolved Qualifiers: Chest pain type: unspecified Qualified Code(s): R07.9 - Chest pain, unspecified (3) Essential hypertension: (4) Dyslipidemia: (5) Sleep apnea: (6) H/O aortic valve replacement with porcine valve: (7) Obesity: (8) Valvular heart disease: Reason for Visit Reason for Visit: CP Hospital Course Hospital Course This is a 64-year-old male who was admitted to the hospital for hypertensive urgency. Prakash Musa is a 64 year old male with past medical history of hypertension, status post bioprosthetic aortic valve replacement 5 years ago (coronary angiogram done at that time was did not show any obstructive coronary artery disease, as well as a normal stress test) came in with chief complaint of acute onset of substernal chest pain and shortness of breath around noon, chest pain was pressure-like to sharp, with no radiation, was accompanied with nausea , vomiting and diaphoresis. 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 Upon arrival in the ER his blood pressure was extremely high he has recorded blood pressure was 215/146.He was worked up for hypertensive urgency/emergency. When I was examining the patient his chest pain has subsided he was not complaining of any shortness, no chest pain on inspiration, no focal weakness, no nausea, was having some headache likely due to the nitro drip, no dizziness, no blurred vision, no abdominal pain, no urinary complaint, he denied any fever, cough, runny nose, abdominal pain , back pain sick contact. Imaging studies: CT angio chest: No pulmonary embolus or acute pulmonary pathology.No pneumothorax. No pleural effusion. Heart: The heart is normal in size. Aortic valve replacement is noted. Left coronary artery calcifications are appreciated. Xray chest : Bilateral upper lobe predominant interstitial opacities are noted. No airspace consolidation is seen. EKG :Sinus Bradycardia . LEFT BUNDLE BRANCH BLOCK. Hospital course. His blood pressure improved with IV treatment. P.o. hydralazine was added. Echocardiogram was completed. He did not have any wall motion abnormalities. He was noted to have mild elevation in troponins. EKG was reviewed. did not Show any acute changes. He was recommended to complete an outpatient stress test. 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 Statin was added. We are kept him on 81 aspirin. If he becomes symptomatic he will return to the ER or call 911 Physical Exam Const: COMMON NORMALS: no acute distress and average body habitus Neck/C-Spine: COMMON NORMALS: no JVD Chest: COMMONS NORMALS: normal inspection of the chest Resp: COMMON NORMALS: normal respiratory effort and No retractions Cardio: COMMON NORMALS: no JVD and regular rate RATE: regular rate GI: COMMON NORMALS: Soft to palpation and non-tender PALPATION: Yes Soft to palpation Extremity: COMMON NORMALS: normal to inspection and full ROM Discharge Data Data Completed and Pending: Completed Studies During Hospitalization Category Date Time Status CT angio chest PE protcl [id number] Stat Cat Scan 01/15/20 18:29 Completed XR chest 1V lee ble [id number] Stat Exams 01/15/20 16:12 Completed CV echo complete* [id number] Routine Ultrasound 01/16/20 22:49 Completed Vitals: Last Vital Signs Temp 98.3 F 01/16/20 16:00 Pulse 59 L 01/16/20 16:59 Resp 18 01/16/20 16:59 BP 135/76 01/16/20 16:59 Pulse Ox 94 01/16/20 16:59 Discharge Plan Discharge Patient Disposition: Home Condition: Stable Prescriptions: New hydralazine 25 mg Tablet 25 mg PO TID Qty: 75 RF: 0 pravastatin 40 mg tablet 40 mg PO DAILY Qty: 30 RF: 0 Continued magnesium oxide 400 mg magnesium capsule 400 mg PO DAILY@0730 RF: 0 (DME) CAM WALKER See Rx Instructions .ROUTE .MEDSUPPLY Qty: 1 RF: 0 (DME) ASO See Rx Instructions .ROUTE .MEDSUPPLY Qty: 1 RF: 0 Tart Sandhu 82-201-76-75-20 mg Capsule 1 cap PO DAILY@0730 RF: 0 Total Cleanse Uric Acid 1 tab PO DAILY@0730 RF: 0 Aspir-81 81 mg PO DAILY@2100 RF: 0 metoprolol tartrate 50 mg tablet 50 mg PO BID@0730,2100 RF: 0 losartan 100 mg tablet 100 mg PO DAILY@2099 RF: 0 oxycodone 10 mg tablet 10 mg PO DIRECTED PRN (Reason: Pain) RF: 0 Discharge Orders: Discharge Order (Routine); Ordered 01/16/20 Ordered By: Sekou Amaya Other Ambulatory Orders: Sestamibi Stress Test Request (Routine) Timeframe: 1 Week Facility: [facility] - Location: Cardiac Diagnostic Laboratory Ordered By: Sekou Amaya Referrals: Jordan Medina, [Primary Care Provider] - 7-10 days ([facility] will be calling to schedule a hospital followup with Dr. Medina to be seen in 7 to 10 days. If you don't hear from them by Friday, please give them a call. Thank you) Discharge Diet: Cardiac Discharge Activity: Resume usual activity Patient Instructions: How to Take Your Blood Pressure, Pravastatin (By mouth), Hydralazine (By mouth), Chest Pain (DC), Heart Healthy Diet (DC), Hypertensive Crisis (DC), Chest Pain Stoplight Discharge Attestations Time Spent in Discharge Care*: less than 30 min Quality Metrics Clinical Quality Measures During this hospital stay, did patient experience: None Coding Level of Care Code Acute Video Manager for Venkata Fwd Diagnoses Hypertensive urgency I16.0 Chest pain R07.9 Chest pain type: unspecified Essential hypertension I10 Dyslipidemia E78.5 Sleep apnea G47.30 H/O aortic valve replacement with porcine valve Z95.3 Obesity E66.9 Valvular heart disease I38
== END 2020-01-16 17:30 | disposition home or self-care (01) ==
LOC: ER 21:02 → CSU 21:36
PROVIDERS: Family Medicine; Nurse Practitioner Family; Admitting Provider Internal Medicine; Emergency Provider Emergency Medicine; PCP Internal Medicine; Visit Provider Internal Medicine
DX: I16.0 Hypertensive urgency (principal); R07.9 Chest pain, unspecified; I10 Essential (primary) hypertension; E78.5 Hyperlipidemia, unspecified; G47.30 Sleep apnea, unspecified; Z95.3 Presence of xenogenic heart valve; E66.9 Obesity, unspecified; I38 Endocarditis, valve unspecified; Z79.82 Long term (current) use of aspirin; M79.7 Fibromyalgia; Z68.35 Body mass index [BMI] 35.0-35.9, adult
CPT/HCPCS: 12345; 36415; 71045; 71275; 80053; 80061; 83036; 83735; 83880; 84443; 84484; 85025; 85610; 85730; 87426; 93005; 93306; 96365; 96366; 96372; 96375; 99282; 99285; G0378; J0360; J1650; J2270; J2405; J3010; J3490; Q9967

== ENCOUNTER 2020-02-15 10:01 | Outpatient (CLI) | payer MEDICARE, SELFPAY ==
[2020-02-15 10:31] VITALS: BMI 38.9
--- NOTE | 2020-02-15 10:32 | NMCV_ITS ---
NM melvin perf SPECT r/s* [id number] Prakash Musa Age: 64 Gender: M : 1955 Exam Date: 02/15/2020 10:32 Ordering Phys: Sekou Amaya MD Technologist: JULIA Espinoza Exam Location: [facility] Indications: Chest pain STRESS TEST [facility] IMAGE PROTOCOL Rest/Stress 1 Lexiscan Day Radiopharmaceutical Dose (mCi) Administration Site Administered by Rest: Tc-99m 10.6 IV JULIA Espinoza Sestamibi Stress:Tc-99m 33.0 IV JULIA Stewart Sestamibi Rest: 15-Feb-2020 60 Discovery 630 Stress: 15-Feb-2020 45 Discovery 630 0.4mg Lexiscan. Supine position only as patient was unable to lay prone. SPECT RESULTS Technical Quality: Good Raw Data Analysis: Soft tissue attenuation Image Corrections: No attenuation or motion correction applied Summed Stress Score: 8 Summed Rest Score: 2 Summed Difference Score: 6 PERFUSION FINDINGS There is decreased radiotracer uptake in apical lateral, anterolateral and apical anterior cavazos extremities. This represents moderate sized reversible perfusion defect in these territories. FUNCTIONAL RESULTS (calculated via Gated SPECT) Stress Image LV EF (%): 43 Stress EDV (mL):206 TID: 1.06 Stress ESV (mL):118 FUNCTIONAL FINDINGS: LVEF is reduced and is 43%. IMPRESSIONS 1. Moderate-sized reversible perfusion defect is seen in apical lateral, mid anteroateral and anterior apical wall. This represents possible ischemia in the LCx/LAD territory. 2. LV systolic function is reduced at 43%. Raymond Collazo MD (Electronically Signed) Final Date: 20 February 2020 12:42 S
--- NOTE | 2020-02-15 10:32 | ECG_ITS ---
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 Interpretive Statements NAME OF STUDY: LEXISCAN SESTAMIBI STRESS TEST INDICATION: [Chest Pain, ] Procedure: At the baseline, the blood pressure was 174/120 mmHg,with a heart rate of 58 bpm. The electrocardiogram showed a normal sinus rhythm, normal axis with normal ST and T's. The Lexiscan was infused over a duration of 20 seconds. A total of 0.4 mg of Lexiscan was infused. The stress phase was continued for a total of 5 minutes. Heart rate at the end of stress phase was 70 bpm, with a blood pressure of 217/123 mmHg. The EKG at the peak infusion revealed sinus rhythm with no significant ST-T wave changes. Sestamibi was injected 20 seconds after Lexiscan infusion. Blood pressure at the end of recovery phase was 180/119 mmHg, with a heart rate of 64 bpm. EKG had occasional PVCs. Conclusion: 1. Normal EKG response to Lexiscan infusion. 2. No Lexiscan induced chest pain or cardiac arrhythmia. 3. Hypertensive blood pressure response and normal heart rate response. 4. Sestamibi/sestamibi perfusion scan pending; see separate report. Electronically Signed On 02-26-2020 9:48:46 TUMBLE TAILSTOCK TURRET LATHE OPERATOR by Raymond Collazo M.D. [email or web address]
[2020-02-15] MEDS: regadenoson 0.4 Mg/5 ml Syringe IVP (12:22)
[2020-02-15 12:39] VITALS: BP 180/119; PULSE 64
== END 2020-02-15 10:02 | disposition home or self-care (01) ==
LOC: CDL 10:03
PROVIDERS: PCP Internal Medicine; Visit Provider Internal Medicine
DX: R07.9 Chest pain, unspecified (principal)
CPT/HCPCS: 78452; 93017; A9500; J2785

== ENCOUNTER 2020-02-29 09:17 | Outpatient (CLI) | payer MEDICARE, SELFPAY ==
--- NOTE | 2020-02-29 09:28 | XR_ITS ---
WS: [id number] LUMBAR SPINE FLEXION AND EXTENSION TECHNIQUE: 3 views of the lumbar spine: Lateral neutral, flexion, and extension views. CLINICAL INFORMATION: LOW BACK PAIN COMPARISON: None. FINDINGS: Slight retrolisthesis L2 on L3 and L3 on L4. No instability on the flexion and extension views. Disc space narrowing worse at L1-2 and L2-3. Anterior hypertrophic changes in the upper thoracic spin e. Bony ankylosis in the lower thoracic and upper lumbar spine. Moderate Facet arthropathy L5-S1. XR/XR lumbar spine f/e only [id number] IMPRESSION: No instability on the flexion and extension views.
--- NOTE | 2020-02-29 09:28 | MR_ITS ---
WS: [id number] MRI LUMBAR SPINE NONCONTRAST TECHNIQUE: Sagittal T1, T2 and STIR imaging. Axial T1 and T2 imaging. CLINICAL INFORMATION: LOW BACK PAIN COMPARISON: None. FINDINGS: Mild lumbar curve. No acute compression. Disc space narrowing worse at L1-L2 and L2-L3. Endplate dege nerative changes. L1-L2: Mild disc bulging with slight effacement of the ventral thecal sac. Narrowing of the left suba rticular recess. Spinal canal and foramen are patent. Mild facet arthropathy. L2-L3: Mild disc bulging with osteophytic ridging. Mild central canal stenosis. Impingement on the tr aversing L3 nerve roots bilaterally. Moderate facet arthropathy. Mild right foraminal narrowing. L3-L4: Mild disc bulging with narrowing of the subarticular recess bilaterally. Moderate facet arthro samy. Moderate right greater than left foraminal narrowing. L4-L5: Minimal annular bulging. Impingement on the traversing L5 nerve roots bilaterally. Moderate fa cet arthropathy. Mild right greater than left foraminal narrowing. L5-S1: Mild annular bulging. Moderate to advanced facet arthropathy. Spinal canal is patent. Mild lef t foraminal narrowing. Partially visualized left renal cysts measuring up to 5.5 cm. MR/MR lumbar spine wo con* [id number] IMPRESSION: 1. Mild lumbar curve. No acute compression. 2. Mild central canal stenosis L1-L2 and L2-L3 due to disc bulging with facet arthropathy and ligamentum flavum hypertrophy. Impingement on the left L1-2 sub articular recess. 3. Mild central canal stenosis L3-4 with narrowing of the subarticular recess bilaterally. 4. Mild bony foraminal narrowing described above. 5. Moderate facet arthropathy L4-L5 and L5-S1.
--- NOTE | 2020-02-29 09:36 | XR_ITS ---
WS: [id number] EYE TECHNIQUE: 2 views of the skull CLINICAL INFORMATION: FOR MRI COMPARISON: None. FINDINGS: No radiopaque foreign bodies. XR/XR eye foreign body [id number] IMPRESSION: No radiopaque foreign bodies.
== END 2020-02-29 09:18 | disposition home or self-care (01) ==
LOC: RADWPI 09:23
PROVIDERS: PCP Internal Medicine; Visit Provider Nurse Practitioner
DX: M48.061 Spinal stenosis, lumbar region without neurogenic claudication (principal); M47.816 Spondylosis without myelopathy or radiculopathy, lumbar region; M47.817 Spondylosis without myelopathy or radiculopathy, lumbosacral region
CPT/HCPCS: 70030; 72120; 72148

== ENCOUNTER → 2020-03-09 14:26 | Outpatient (BNVA) | payer MEDICARE, SELFPAY | PROVIDERS: PCP Internal Medicine; Visit Provider Podiatrist Foot & Ankle Surgery | DX: M20.42 Other hammer toe(s) (acquired), left foot (principal) | CPT/HCPCS: 73630 ==

== ENCOUNTER 2020-05-03 15:30 | Outpatient (CLI) | payer MEDICARE, SELFPAY | END 2020-05-03 15:31 | disposition home or self-care (01) | LOC: SPT 15:31 | PROVIDERS: PCP Internal Medicine; Visit Provider Podiatrist Foot & Ankle Surgery | DX: Z46.89 Encounter for fitting and adjustment of other specified devices (principal); M20.42 Other hammer toe(s) (acquired), left foot; M21.41 Flat foot [pes planus] (acquired), right foot; M21.42 Flat foot [pes planus] (acquired), left foot | CPT/HCPCS: L3030 ==